=== PATIENT | female | born 1980 | race Caucasian/White ===

== ENCOUNTER 2021-03-23 21:23 | Emergency (ER) | payer OTHER ==
[2021-03-24 00:32] LABS: BASOPHIL 0.4 % (0-2); EOSINOPHIL 0 % (0-5); HCT 39.6 % (37.0-47.0); HGB 13.5 g/dl (12.5-16.0); LYMPHOCYTE 21.1 % (15-48); MCH 30.6 pg (25.0-31.0); MCHC 34.1 g/dL (32.0-36.0); MCV 89.8 fL (78.0-100.0); MONOCYTE 5.4 % (0-12); MPV 9.9 fL (6.0-9.5); NEUTROPHIL 72.9 % (41-80); NRBC 0; PLT 239 K/uL (150-400); RBC 4.41 M/uL (4.20-5.40); RDW 11.9 % (11.5-14.0); WBC 4.6 K/uL (4.0-10.5)
[2021-03-24 00:48] LABS: BUN/CREAT RATIO (CALC) 14.8 RATIO; CREATININE 0.61 mg/dL (0.51-0.95); POTASSIUM 4.4 mmol/L (3.5-5.1)
[2021-03-24 01:16] LABS: CORONAVIRUS 2019 SARS-COV-2 NEGATIVE (NEGATIVE); INFLUENZA A NAA NEGATIVE (NEGATIVE)
[2021-03-24] MEDS ORDERED: OXYCODONE IR 5MG5 MG PO (04:35)
[2021-03-24] MEDS ORDERED: AUGMENTIN 875-1 EACH PO (04:35)
[2021-03-24] MEDS ORDERED: NAPROXEN500 MG PO (04:35)
[2021-03-24] MEDS ORDERED: BROMFED DM COU473 ML PO (04:35)
[2021-03-24] MEDS ORDERED: ZPAK PO (04:35)
[2021-03-24] MEDS ORDERED: VENTOLIN HFA IN18 GM INH (04:35)
== END 2021-03-24 04:52 | disposition home or self-care (01) ==
LOC: FER 21:23
PROVIDERS: Emergency Medicine Emergency Medical Services
DX: J18.9 Pneumonia, unspecified organism (principal); R07.89 Other chest pain; J45.909 Unspecified asthma, uncomplicated; Z88.6 Allergy status to analgesic agent; Z88.8 Allergy status to other drugs, medicaments and biological substances; Z20.822 Contact with and (suspected) exposure to COVID-19
CPT/HCPCS: 36415; 36600; 71275; 80048; 82803; 85025; 85379; 93005; 94640; 94664; J0696; J1170; J1885; J2405; J2930; Q9967; U0002